=== PATIENT | female | born 1950 | race Caucasian/White ===

== ENCOUNTER → 2016-06-24 | Outpatient (CLI) | payer OTHER | LOC: FIMAGING 13:11 | PROVIDERS: ATTEND Physician Assistant | DX: M71.22 Synovial cyst of popliteal space [Baker], left knee (principal) ==

== ENCOUNTER → 2016-07-01 | Outpatient (CLI) | payer OTHER | LOC: BHFA 11:00 | PROVIDERS: ATTEND Internal Medicine Cardiovascular Disease | DX: R00.2 Palpitations (principal) ==

== ENCOUNTER → 2016-07-25 | Outpatient (CLI) | payer OTHER | LOC: BHFA 10:00 | PROVIDERS: ATTEND Internal Medicine Cardiovascular Disease | DX: R00.2 Palpitations (principal); I49.3 Ventricular premature depolarization ==

== ENCOUNTER → 2016-08-21 | Outpatient (CLI) | payer OTHER | LOC: BHFA 08:30 | PROVIDERS: ATTEND Internal Medicine Cardiovascular Disease | DX: R94.39 Abnormal result of other cardiovascular function study (principal) | CPT/HCPCS: 78452; 93017; A9500 ==

== ENCOUNTER 2016-08-30 08:05 | Day surgery (SDC) | payer OTHER ==
[2016-08-30] MEDS ORDERED: NS 1,000 ML IV ONE (08:09)
[2016-08-30] MEDS ORDERED: diphenhydrAMINE 25 MG CAP PO ONE ×2 (08:09→08:37)
[2016-08-30] MEDS ORDERED: FAMOTIDINE 20 MG TAB PO ONE (08:09)
[2016-08-30] MEDS ORDERED: DIAZEPAM 5 MG TAB PO ONE (08:09)
[2016-08-30] MEDS ORDERED: ASPIRIN EC 325 MG TAB PO ONE ×2 (08:09→08:37)
--- NOTE | 2016-08-30 08:30 | CPEKG ---
Heart Rate: 74 RR Interval: 811 P-R Interval: 148 QRSD Interval: 74 QT Interval: 356 QTC Interval: 395 P [place]: 80 QRS [place]: 77 T Wave [place]: -63 EKG Severity - DEFECTIVE ECG - EKG Impression: SINUS RHYTHM EKG Impression: ABNORMAL T, CONSIDER ISCHEMIA, INFERIOR LEADS Electronically Signed By: Octavio Schwab 30-Aug-2016 09:20:23
[2016-08-30] MEDS ORDERED: DIAZEPAM 5 MG TAB ONE (08:37)
[2016-08-30] MEDS ORDERED: FAMOTIDINE 20 MG TAB ONE (08:37)
[2016-08-30 08:42] LABS: % IMMATURE GRANULYOCYTES 0.1 % (0.0-1.1); ABSOLUTE IMMATURE GRANULOCYTES 0.01 10^3/uL (0.00-0.10); ADD DIFF? NO; ADD MORPH? NO; ADD SCAN? NO; ATYPICAL LYMPHOCYTE FLAG 30 (0-99); FRAGMENT RBC FLAG 0 (0-99); HEMATOCRIT 44.6 % (38.0-47.0); HEMOGLOBIN 15.2 g/dL (12.6-16.3); LEFT SHIFT FLG 10 (0-99); LIPEMIA HEMOLYSIS FLAG 90 (0-99); MEAN CELL HEMOGLOBIN 32.3 pg (27.9-34.1); MEAN CELL HEMOGLOBIN CONCENTR. 34.1 g/dL (32.4-36.7); MEAN CELL VOLUME 94.9 fL (81.5-99.8); MEAN PLATELET VOLUME 10.4 fL (8.7-11.7); PLATELET CLUMPS FLAG 10 (0-99); PLATELET COUNT 304 10^3/uL (150-400); RED CELL DISTRIBUTION WIDTH 12.5 % (11.5-15.2)
[2016-08-30] MEDS ORDERED: LIDOCAINE 1% 300 MG/30 ML SDV ONE (08:42)
[2016-08-30] MEDS ORDERED: HEPARIN 10,000 UNIT/10 ML MDV ONE (08:43)
[2016-08-30] MEDS ORDERED: VERAPAMIL 5 MG/2 ML VIAL ONE (08:43)
[2016-08-30] MEDS ORDERED: fentaNYL 100 MCG/2 ML INJ ONE (08:43)
[2016-08-30] MEDS ORDERED: MIDAZOLAM 2 MG/2 ML VIAL ONE (08:43)
[2016-08-30] MEDS ORDERED: IOPAMIDOL (ISOVUE-370) 150 ML BTL IV ONE (08:44)
[2016-08-30 09:00] LABS: ANION GAP 11 mEq/L (8-16); CALCIUM 9.8 mg/dL (8.5-10.4); CARBON DIOXIDE 23 mEq/l (22-31); CHLORIDE 105 mEq/L (97-110); CHOLESTEROL 206 mg/dL (140-220); CHOLESTEROL/HDL RATIO 3.07 RATIO (1.00-4.44); CREATININE 0.9 mg/dL (0.6-1.0); GLOMERULAR FILTRATION RATE > 60; GLUCOSE 88 mg/dL (70-100); HIGH DENSITY LIPOPROTEIN 67 mg/dL (40-85); LDL/HDL RATIO 1.73 RATIO (1.00-3.22); LOW DENSITY LIPOPROTEIN 116 mg/dL (80-100); NON-HIGH DENSITY LIPOPROTEIN 139 mg/dL (90-129); POTASSIUM 4.2 mEq/L (3.5-5.2); SODIUM 139 mEq/L (134-144); TRIGLYCERIDE 119 mg/dL (35-135); VERY LOW DENSITY LIPOPROTEINS 23 mg/dL (8-25)
[2016-08-30 09:15] LABS: INR 1.12 (0.83-1.16); PROTIME(PATIENT) 14.3 SEC (12.0-15.0)
--- NOTE | 2016-08-30 10:31 | PDDXCAT ---
Diagnostic Cath Note - . Date: 08/30/16 High Lighter: Chidi Indication: other (PVCs and abnormal nuclear stress test.) - Procedure Access: right wrist Procedure: left heart catheterization, coronary angiography, left ventriculogram - Materials Left Heart Cath size: 4F Left Heart Cath materials: standard multipack (JL4, JR4, pigtail) - Findings-Left Heart Catheterization LM: Angiographically normal. LAD: Angiographically normal. LCX: Angiographically normal. RCA: Angiographically normal. EDP: 10 mmHg LVEF: 60% Wall motion: Normal Complications: None Estimated blood loss: <50ml Closure method: TR Band Assessment: 1) Normal LV systolic function. 2) Angiographically coronary arteries.
== END 2016-08-30 13:45 | disposition home or self-care (01) ==
LOC: FCATH 08:05
PROVIDERS: ATTEND Internal Medicine Interventional Cardiology
DX: R94.30 Abnormal result of cardiovascular function study, unspecified (principal)
CPT/HCPCS: 93005; 93458; C1769; J1644; J2250; J3010; Q9967

== ENCOUNTER → 2016-12-11 | Outpatient (CLI) | payer OTHER | LOC: FIMAGING 13:38 | PROVIDERS: ATTEND Internal Medicine | DX: Z12.31 Encounter for screening mammogram for malignant neoplasm of breast (principal) | CPT/HCPCS: G0202 ==

== ENCOUNTER → 2017-07-03 | Outpatient (CLI) | payer OTHER | LOC: FIMAGING 12:59 | PROVIDERS: ATTEND Internal Medicine | DX: Z13.820 Encounter for screening for osteoporosis (principal); M85.89 Other specified disorders of bone density and structure, multiple sites; Z78.0 Asymptomatic menopausal state; Z87.81 Personal history of (healed) traumatic fracture ==

== ENCOUNTER → 2017-12-16 | Outpatient (CLI) | payer OTHER | LOC: FIMAGING 09:48 | PROVIDERS: ATTEND Internal Medicine | DX: Z12.31 Encounter for screening mammogram for malignant neoplasm of breast (principal) ==